=== PATIENT | male | born 1985 | race African-American/Black ===

== ENCOUNTER 2018-12-04 15:54 | Emergency (ER) | payer BC ==
[~2018-12-04] VITALS: Ht 172.7 cm; Wt 65.9 kg
[2018-12-04 16:02] VITALS: BP 121/84; TEMP 98.9
[2018-12-04 17:16] LABS: BASO % 0.4 % (0.0-2.0); EOS # 0.1 (0.0-0.7); EOS % 1.4 % (0-4.0); GRAN # 3.3 (1.4-6.5); GRAN % 58.5 % (42.2-75.2); HEMATOCRIT 52.2 % (42.0-52.0); HEMOGLOBIN 16.8 g/dl (13.5-18.0); LYMPH # 1.9 (1.2-3.4); LYMPH % 32.8 % (20.0-51.0); MEAN CELL VOLUME 83 fl (80.0-100.0); MEAN CORPUSCULAR HEMOGLOBIN 27 pg (27.0-31.0); MEAN CORPUSCULAR HGB CONC 32 g/dl (33.0-37.0); MEAN PLATELET VOLUME 11.5 fl (7.4-10.4); MONO # 0.4 (0.1-0.6); MONO % 6.7 % (1.7-9.3); PLATELET COUNT 215 K/mm3 (130-400); REDCELL DISTRIBUTION WIDTH-CV 14.9 % (11.5-14.5)
[2018-12-04 17:30] LABS: ALANINE AMINOTRANSFERASE 20 U/L (21-72); ALBUMIN 4.6 gm/dL (3.5-5.0); ALKALINE PHOSPHATASE 99 U/L (50-136); ANION GAP 12 mmol/L (7-16); AST,SGOT 25 U/L (15-37); BILIRUBIN,TOTAL 0.5 mg/dL (0.0-1.0); BLOOD UREA NITROGEN 14 mg/dL (9-20); CALCIUM 9.5 mg/dL (8.4-10.2); CARBON DIOXIDE 26 mmol/L (22-30); CHLORIDE 104 mmol/L (98-107); CREATININE, serum 1.07 (0.66-1.25); GLUCOSE 89 mg/dL (74-106); POTASSIUM 4.5 mmol/L (3.4-5.0); SODIUM 142 mmol/L (137-145); TOTAL PROTEIN 8.6 gm/dL (6.4-8.2)
[2018-12-04 17:31] LABS: C-REACTIVE PROTEIN < 0.5 mg/dL (0.0-0.9)
[2018-12-04 17:50] VITALS: PULSE 65
== END 2018-12-04 17:50 | disposition home or self-care (01) ==
LOC: COL.ER 15:54
PROVIDERS: Physician Assistant
DX: T43.615A Adverse effect of caffeine, initial encounter (principal); B34.9 Viral infection, unspecified; Z88.2 Allergy status to sulfonamides

== ENCOUNTER → 2020-03-31 | Outpatient (CLI) | payer BC | LOC: COL.RAD 13:30 | DX: N50.82 Scrotal pain (principal) ==

== ENCOUNTER 2021-01-26 22:31 | Emergency (ER) | payer BC ==
[~2021-01-26] VITALS: Ht 167.6 cm; Wt 73.0 kg
[2021-01-27 00:45] VITALS: BP 126/85; PULSE 89; TEMP 98.6
== END 2021-01-27 00:45 | disposition home or self-care (01) ==
LOC: COL.ER 22:31
DX: Z72.51 High risk heterosexual behavior (principal)

== ENCOUNTER 2021-09-28 13:07 | Outpatient (RCR) | payer BC | END 2021-09-30 | disposition home or self-care (01) | LOC: MKS.ESL.PT | DX: M54.2 Cervicalgia (principal) ==

== ENCOUNTER 2021-10-08 14:00 | Outpatient (RCR) | payer BC | END 2021-10-30 | disposition home or self-care (01) | LOC: MKS.ESL.PT | DX: M54.2 Cervicalgia (principal) ==

== ENCOUNTER 2022-03-06 23:20 | Emergency (ER) | payer OTHER ==
[~2022-03-06] VITALS: Ht 172.7 cm; Wt 73.6 kg
[2022-03-06 23:26] VITALS: TEMP 97.8
[2022-03-06 23:58] LABS: BASO % 0.2 % (0.0-2.0); EOS # 0.1 K/mm3 (0.0-0.7); EOS % 1.5 % (0.0-4.0); GRAN # 2.8 K/mm3 (1.4-6.5); GRAN % 47.2 % (42.2-75.2); HEMATOCRIT 49.3 % (42.0-52.0); HEMOGLOBIN 15.8 g/dl (13.5-18.0); LYMPH # 2.7 K/mm3 (1.2-3.4); LYMPH % 45.5 % (20.0-51.0); MEAN CELL VOLUME 81 fl (80.0-100.0); MEAN CORPUSCULAR HEMOGLOBIN 26 pg (27-31); MEAN CORPUSCULAR HGB CONC 32 g/dl (33.0-37.0); MEAN PLATELET VOLUME 11.6 fl (7.4-10.4); MONO # 0.3 K/mm3 (0.1-0.6); MONO % 5.4 % (1.7-9.3); PLATELET COUNT 190 K/mm3 (130-400); REDCELL DISTRIBUTION WIDTH-CV 14.4 % (11.5-14.5)
[2022-03-07 00:07] LABS: CALCIUM 9.2 mg/dL (8.4-10.2); CREATININE, serum 1.03 mg/dL (0.72-1.25)
[2022-03-07 00:09] LABS: POTASSIUM 4.1 mmol/L (3.5-4.5)
[2022-03-07 00:14] LABS: TROPONIN-I 0.01 ng/mL (0.00-0.033)
[2022-03-07 03:41] VITALS: BP 109/80; PULSE 86
== END 2022-03-07 03:42 | disposition home or self-care (01) ==
LOC: COL.ER 23:20
PROVIDERS: Emergency Medicine
DX: R07.89 Other chest pain (principal); R94.31 Abnormal electrocardiogram [ECG] [EKG]; Z86.16 Personal history of COVID-19